=== PATIENT | male | born 1950 | race Caucasian/White ===

== ENCOUNTER 2024-01-21 10:03 | Inpatient (IN) | payer MEDICARE, SELFPAY ==
[2023-12-30 13:05] VITALS: BMI 36.5
[2023-12-30 14:21] LABS: Hematocrit 40.8 % (39.0-52.0); Hemoglobin 14.4 g/dL (13.0-18.0); Mean Corp Hgb Conc. 35.3 g/dL (33.0-37.0); Mean Corpuscular Hgb 33.9 pg (27.0-31.0); Mean Platelet Volume 10.6 fL (7.4-10.4); Platelet Count 157 10^3/uL (130-400); Red Blood Cell Count 4.25 10^6/uL (4.70-6.10); Red Cell Dist. Width 12.5 % (11.5-14.5); White Blood Cell Count 7.6 10^3/uL (4.8-10.8)
[2023-12-30 15:51] LABS: ALT (SGPT) 27 U/L (0-50); AST (SGOT) 26 U/L (17-59); Albumin 4.3 g/dl (3.5-5.0); Alkaline Phosphatase 66 U/L (38-126); Blood Urea Nitrogen 22 mg/dl (9-20); Calcium 9.3 mg/dl (8.4-10.2); Carbon Dioxide 26 mmol/L (22-30); Chloride 105 mmol/L (98-107); Estimated Creatinine Clearance 118 ml/min; Glucose 92 mg/dl (70-99); Potassium 4.7 mmol/L (3.5-5.1); Sodium 142 mmol/L (135-145); Total Bilirubin 0.6 mg/dl (0.2-1.3); Total Protein 6.8 g/dl (6.3-8.2); eGFR > 60.00
[2023-12-31 08:21] LABS: Glycohemoglobin (HgbA1c) 5.4 % (4.0-5.6)
[2024-01-15 10:31] VITALS: BMI 36.5
[2024-01-21] VITALS (12 sets, daily range): BP systolic 124–141; BP diastolic 61–81; PULSE 65; O2SAT 95; BMI 36.5
[2024-01-21] MEDS: TYLENOL 650 MG PO ×3 (10:26→20:33)
[2024-01-21] MEDS: CELEBREX 200 MG PO (10:26)
--- NOTE | 2024-01-21 13:43 | W.PN.UPDATE ---
Update Note
Progress Note Update
R knee OA s/p R TKA w/ Dr Emanuel 01/21/24
DVT prophylaxis - Eliquis at modified dosing, b/l venous foot pumps
- Will resume Eliquis 5 mg PO BID on POD 5 if hemodynamically stable (2.5 mg tabs prescribed at pre-op appt)
HTN - + parameters - monitor BP
SVT and A fib - monitor on tele
- Continue BB
- Eliquis as stated above
H/o DVT - resume Eliquis as stated above
- Frequent and early ambulation as tolerated
- Plasma flow devices HIGHLY encouraged upon d/c �����
Asthma, mild and intermittent
H/o Legionnaires disease
INOCENCIA, compliant w/ device
- Monitor O2
- IS
- Resume inhaler prn
- Continue CPAP HS
H/o diabetes, improving w/ weight loss - pre-op A1c stable at 5.4
GERD - add Pepcid HS
Balance difficulties and Vertigo - on fall precautions
Lumbar stenosis w/ radiculopathy - consider Gabapentin or Lyrica
Probable BPH w/ nocturia, urinary hesitancy - monitor voids
- Add Flomax
Obesity, BMI 36.5; s/p gastric sleeve 2020 - would benefit from prophylactic Cefadroxil upon d/c
HLD
Mild MR
Colon polyps
Diverticulosis
Nephrolithasis
RA
H/o BCC and SCC
Rosacea
Depression
Anxiety
Insomnia
H/o tobacco abuse
[2024-01-21] MEDS: DILAUDID 0.5 MG IV (14:45)
[2024-01-21] MEDS: DEMEROL 12.5 MG IV ×2 (14:58→15:35)
[2024-01-21] MEDS: ROXICODONE 5 MG PO (15:22)
[2024-01-21] MEDS: FLOMAX 0.4 MG PO (16:16)
[2024-01-21] MEDS: NORMOSOL-R/PLASMALYTE-A 1000 IV (16:17)
[2024-01-21] MEDS: ROXICODONE 10 MG PO ×2 (16:44→22:15)
--- NOTE | 2024-01-21 18:32 | PTCARENOTE ---
Pt received from PACU s/p R TKA. AAOx3. Drowsy but arousable to voice. R knee with antibacterial adhesive dressing. CDI. Neurovascular checks to RLE WDL. NSR on cardiac technologist. SpO2 94% on 3L nasal cannula. VSS. Assessment documented. Pt OOB to
chair with PT and RN. Call redman in reach. Pain controlled at this time.
[2024-01-21] MEDS: BACTROBAN 2% OINTMENT 1 APPLIC NASAL (20:31)
[2024-01-21] MEDS: COLACE 100 MG PO (20:31)
[2024-01-21] MEDS: ANCEF 5 IV (20:31)
[2024-01-21] MEDS: LOPRESSOR 25 MG PO (20:32)
[2024-01-21] MEDS: ELIQUIS 2.5 MG PO (20:32)
[2024-01-21] MEDS: DECADRON 4 MG PO (20:32)
[2024-01-21] MEDS: SENOKOT 17.2 MG PO (20:33)
[2024-01-21] MEDS: WELLBUTRIN REGULAR RELEASE 100 MG PO (20:33)
[2024-01-21] MEDS: DESYREL 200 MG PO (22:15)
[2024-01-21] MEDS: LIPITOR 80 MG PO (22:15)
[2024-01-21] MEDS: PEPCID 20 MG PO (22:15)
[2024-01-22] MEDS: TYLENOL PO (00:29)
[2024-01-22] MEDS: DILAUDID 0.5 MG IV (00:43)
[2024-01-22] MEDS: TYLENOL 650 MG PO ×3 (04:33→12:00)
[2024-01-22] MEDS: ANCEF 5 IV (04:34)
[2024-01-22] MEDS: ROXICODONE 10 MG PO ×2 (04:46→08:37)
[2024-01-22 07:57] VITALS: BP 126/64
[2024-01-22] MEDS: DECADRON 4 MG PO (08:32)
[2024-01-22] MEDS: COLACE 100 MG PO (08:32)
[2024-01-22] MEDS: ELIQUIS 2.5 MG PO (08:32)
[2024-01-22] MEDS: SENOKOT 17.2 MG PO (08:33)
[2024-01-22] MEDS: BACTROBAN 2% OINTMENT 1 APPLIC NASAL (08:33)
[2024-01-22] MEDS: FLOMAX 0.4 MG PO (08:33)
[2024-01-22] MEDS: LOPRESSOR 25 MG PO (08:34)
[2024-01-22] MEDS: WELLBUTRIN REGULAR RELEASE 100 MG PO (08:34)
--- NOTE | 2024-01-22 09:32 | W.PN.ORTHO ---
Today's Communication / Plan
-
Await PT and OT recs.
D/c later today if remaining clinically stable.
Assessment
.
Distal Motor Intact: Yes
Dressing:
Scant areas of old incisional bleeding along incision line.
Assessment:
R knee OA s/p R TKA w/ Dr Emanuel 01/21/24
DVT prophylaxis - Eliquis at modified dosing, b/l venous foot pumps
- Will resume Eliquis 5 mg PO BID on POD 5 since hemodynamically stable (2.5 mg tabs prescribed at pre-op appt)
HTN - + parameters - BPs overall stable
SVT and A fib - maintaining NSR on tele
- Continue BB
- Eliquis as stated above
H/o DVT - resumed Eliquis as stated above
- Frequent and early ambulation as tolerated
- Plasma flow devices HIGHLY encouraged upon d/c����
Asthma, mild and intermittent
H/o Legionnaires disease
INOCENCIA, compliant w/ device
- O2 stable on RA
- IS
- Resumed inhaler prn
- Continue CPAP HS
H/o diabetes, improving w/ weight loss - pre-op A1c stable at 5.4
GERD - added Pepcid HS
Balance difficulties and Vertigo - on fall precautions
Lumbar stenosis w/ radiculopathy - discussed Gabapentin and Flexeril prn w/ patient - pt preference is for Flexeril prn at this time
Probable BPH w/ nocturia, urinary hesitancy - voiding appropriately w/ added Flomax during admission
Obesity, BMI 36.5; s/p gastric sleeve 2020 - would benefit from prophylactic Cefadroxil upon d/c
HLD
Mild MR
Colon polyps
Diverticulosis
Nephrolithasis
RA
H/o BCC and SCC
Rosacea
Depression
Anxiety
Insomnia
H/o tobacco abuse
Plan
.
Surgery / Date: R TKA w/ Dr Emanuel 01/21/24
DVT Prophylaxis: Other (Eliquis )
Activity:
Out of bed.
PT/OT
Discharge Plan: Home w/ Outpatient PT
Subjective
.
.:
Patient examined resting in bed.
R knee pain present but is reportedly responding well to Oxycodone prn.
Denies any other new significant complaints.
Eager for potential d/c today.
Vital Signs and Labs
.
Vital Signs and Labs:
Lab Results
12/30/23 13:01
12/30/23 13:00
Temp Pulse Resp BP Pulse Ox
97.8 F 63 20 126/64 96
01/22/24 07:57 01/22/24 08:34 01/22/24 07:57 01/22/24 08:34 01/22/24 07:57
Non-invasive Hgb result: 14.2
Physical Exam
-
HEENT: No pallor, cyanosis, or jaundice. Throat clear.
NECK: Supple. No JVD.
RESPIRATORY: Lungs clear to auscultation.
CVS: S1, S2 normal. RRR.�
ABDOMEN: Soft, non-tender. No distension. Morbidly obese.
EXTREMITIES: Expected post-surgical R knee edema. Strength equal, no calf pain with palpation/dorsiflexion. Calves soft.
DISTILLERY SUPERVISOR: AOx3. No focal deficits. protocol manager grossly intact
[2024-01-22] MEDS: LIDOCAINE 4% PATCH 2 PATCH TOPICAL (09:42)
[2024-01-22] MEDS: FLEXERIL 5 MG PO (09:43)
--- NOTE | 2024-01-22 10:10 | W.DS.TRANS ---
DC Summary - Transplant Registered Nurse
-
Discharge Instructions:
Discharge Diagnosis/Procedures R knee OA s/p R TKA w/ Dr Emanuel 01/21/24
Diet Regular
Activity As tolerated,With Walker
Driving Restrictions Not until seen by your Dr
Bathing Restrictions OK to Shower
Other Services PT
Wound Care Dressing to be removed 1 week post-surgery.
Instructions:
Stand-Alone Forms: Total Hip/Knee Replacement D/C
Changes to Home Medications: Yes
Discharge Medications:
DC Medications w/original date entered in [facility]
atorvastatin 80 mg tablet 80 mg PO HS High Cholesterol 03/06/14
apixaban 5 mg tablet (Eliquis) 5 mg PO BID Blood Clot Prevention/Tx 08/01/20
trazodone 100 mg tablet 200 mg PO HS Sleep 08/01/20
Calcium Soft Chew 2 cap PO DAILY Supplement 01/15/24
bupropion HCl 100 mg tablet 100 mg PO BID Mental Health/Anxiety 01/15/24
metoprolol tartrate 25 mg tablet 25 mg PO BID Blood Pressure 01/15/24
multivitamin 1 tab PO DAILY Supplement 01/15/24
mupirocin 2 % topical ointment 1 applic topical BID pre op 01/15/24
xylitol 500 mg mucosal adhesive tablet 1,000 mg mucous membrane HS procedure 01/15/24
Saccharomyces boulardii 250 mg capsule (Florastor) 250 mg PO BID #14 caps 01/22/24
acetaminophen 500 mg tablet 1,000 mg (2 x 500 mg) PO Q6H #1 tab 01/22/24
albuterol sulfate 90 mcg/actuation aerosol inhaler 1 puff inhalation R Q4HPRN PRN allergies #6.7 grams 01/22/24
apixaban 2.5 mg tablet (Eliquis) 2.5 mg PO BID #8 tabs 01/22/24
cefadroxil 500 mg capsule 500 mg PO BID #14 caps 01/22/24
cyclobenzaprine 5 mg tablet 5 mg PO BID PRN muscle spasms #10 tabs 01/22/24
dexamethasone 4 mg tablet 4 mg PO Q12H Anti-inflammatory #7 tabs 01/22/24
docusate sodium 100 mg capsule 100 mg PO BID #30 caps 01/22/24
lidocaine 4 % topical patch 2 patch topical DAILY #30 ea 01/22/24
losartan 25 mg tablet 25 mg PO HS Blood Pressure #1 tab 01/22/24
ondansetron HCl 4 mg tablet 4 mg PO Q6H PRN nausea and vomiting #30 tabs 01/22/24
oxycodone 5 mg tablet 5 - 10 mg (1 - 2 x 5 mg) PO Q6H PRN moderate-severe pain #30 tabs 01/22/24
sennosides 8.6 mg tablet (Senna Laxative) 17.2 mg (2 x 8.6 mg) PO BID #30 tabs 01/22/24
Home Medication Changes
Saccharomyces boulardii 250 mg capsule (Florastor) 250 mg PO BID #14 caps 01/22/24
acetaminophen 500 mg tablet 1,000 mg (2 x 500 mg) PO Q6H #1 tab 01/22/24
apixaban 2.5 mg tablet (Eliquis) 2.5 mg PO BID #8 tabs 01/22/24 - until POD 5
cefadroxil 500 mg capsule 500 mg PO BID #14 caps 01/22/24
cyclobenzaprine 5 mg tablet 5 mg PO BID PRN muscle spasms #10 tabs 01/22/24
dexamethasone 4 mg tablet 4 mg PO Q12H Anti-inflammatory #7 tabs 01/22/24
docusate sodium 100 mg capsule 100 mg PO BID #30 caps 01/22/24
lidocaine 4 % topical patch 2 patch topical DAILY #30 ea 01/22/24
ondansetron HCl 4 mg tablet 4 mg PO Q6H PRN nausea and vomiting #30 tabs 01/22/24
oxycodone 5 mg tablet 5 - 10 mg (1 - 2 x 5 mg) PO Q6H PRN moderate-severe pain #30 tabs 01/22/24
sennosides 8.6 mg tablet (Senna Laxative) 17.2 mg (2 x 8.6 mg) PO BID #30 tabs 01/22/24
Pending Results: No
--- NOTE | 2024-01-22 10:53 | CM ---
Met with pt and his at bedside
Pt reports he lives with his in a 2 story home; 1 step to enter, 12 steps to 2nd fl
Independent at baseline, active, drives
DME - rolling walker, single point cane, commode
SNF/HH - no past hx
Has ride home at discharge -
PCP - Abdirahman Munoz
Pharm - [facility]
Pt has appt for outpatient PT scheduled at [place] tomorrow. Has Rx. to transport
Discussed IMM
Plan - home with outpatient PT
[2024-01-22 11:28] VITALS: BP 127/66
[2024-01-22 11:47] VITALS: BP 127/66
== END 2024-01-22 12:38 | disposition home or self-care (01) | DRG 470 ==
LOC: 2 SOUTH 10:03
PROVIDERS: ADMITTING PHYSICIAN Orthopaedic Surgery; FAMILY PHYSICIAN Family Medicine; REFERRING PHYSICIAN Internal Medicine Cardiovascular Disease
PROC: 0SRC0J9 Replacement of Right Knee Joint with Synthetic Substitute, Cemented, Open Approach (ICD-10-PCS; 2024-01-21)
DX: M17.11 Unilateral primary osteoarthritis, right knee (principal); I47.10 Supraventricular tachycardia, unspecified; I10 Essential (primary) hypertension; J45.20 Mild intermittent asthma, uncomplicated; I48.91 Unspecified atrial fibrillation; G47.33 Obstructive sleep apnea (adult) (pediatric); E66.9 Obesity, unspecified; Z68.36 Body mass index [BMI] 36.0-36.9, adult
CPT/HCPCS: 36415; 73560; 80053; 83036; 85027; 87070; 97110; 97116; 97163; 97166; 97535; C1713; C1776

== ENCOUNTER → 2024-08-04 15:24 | Outpatient (REF) | payer MEDICARE, SELFPAY | LOC: MRI 3T 15:24 | PROVIDERS: ATTENDING PHYSICIAN Surgery; FAMILY PHYSICIAN Family Medicine | DX: R97.20 Elevated prostate specific antigen [PSA] (principal) | CPT/HCPCS: 72197; A9575 ==

== ENCOUNTER → 2024-12-27 11:49 | Outpatient (REF) | payer MEDICARE, SELFPAY | LOC: CLAB 11:49 | PROVIDERS: ATTENDING PHYSICIAN Surgery | DX: R97.20 Elevated prostate specific antigen [PSA] (principal) | CPT/HCPCS: 88305 ==